=== PATIENT | male | born 2000 | race Caucasian/White ===

== ENCOUNTER 2020-06-10 02:19 | Emergency (ER) | payer OTHER, SELFPAY ==
[2020-06-10 02:20] VITALS: BP 138/81; PULSE 88; RESP 18; TEMP 37; O2SAT 98
--- NOTE | 2020-06-10 02:43 | ED.WOUNDLAC ---
HPI - Wound/Laceration General Chief Complaint: Wound/Laceration Stated Complaint: Laceration to finger Source: patient and RN notes reviewed Mode of arrival: ambulatory Limitations: no limitations History of Present Illness HPI narrative: Patient states he was walking and slipped on the ice. We went down his hand caught something under the snow and lacerated his middle and ring fingers on the distal phalanx palmar aspect. Onset (ago): minute(s) (30) Extremity Location: Right: hand (ring finger) Place: outdoors Patient tetanus UTD: Yes Context: accidental Associated symptoms: pain Treatments prior to arrival: bandage Related Data Allergies Allergy/AdvReac Type Severity Reaction Status Date / Time No Known Allergies Allergy Verified 06/10/20 02:29 Review of Systems Review of Systems: All systems reviewed & are unremarkable except as noted in HPI and below PMFSH Past Medical History Medical History (Updated 06/10/20 @ 03:43 by Selvin Hubbard MD) No active medical problems Surgical History Surgical History (Updated 06/10/20 @ 02:44 by Selvin Hubbard MD) H/O hand surgery Social History Social History (Updated 06/10/20 @ 02:45 by Selvin Hubbard MD) Tobacco type: e-cigarettes/vaping Substance use: current Substance use type: marijuana Other substance usage details: daily Exam Const: General: healthy appearing, no acute distress and alert Nutritional Appearance: well nourished Orientation/consciousness: patient oriented x3 HENMT: Head: normal to inspection Ears: external ears normal Eyes: Conjunctivae: conjunctivae normal Pupils: Equal, round and reactive pupils present EOM: EOMs intact bilaterally Neck: Neck: normal visual inspection Resp: Effort & Inspection: normal respiratory effort Auscultation: clear to auscultation bilaterally Cardio: Rate: regular rate Rhythm: regular rhythm GI: GI Palp: Yes Soft to palpation and No Tenderness to palpation present (GI) Auscultation: normal bowel sounds Back/Spine/Pelvis: Cervical Spine: cervical ROM normal Thoracic/Lumbar Spine: thoraco-lumbar ROM normal Skin: General skin exam: normal color Wounds: wounds noted laceration right palmar 3rd finger size (2 cm), margins well defined and open, flap right palmar 4th finger size (3 cm) and margins poorly approximated Neuro: General: patient oriented x3, moves all extremities, no meningeal signs and no focal motor deficits Speech: normal speech Gait exam (Neuro): Normal gait present Course Vital Signs Vital signs: Vital Signs Temperature 37.0 C 06/10/20 02:20 Pulse Rate 88 06/10/20 02:20 Respiratory Rate 18 06/10/20 02:20 Blood Pressure 138/81 06/10/20 02:20 Pulse Oximetry 98 06/10/20 02:20 Temperature 36.9 C 06/10/20 03:42 Pulse Rate 78 06/10/20 03:42 Respiratory Rate 20 06/10/20 03:42 Blood Pressure 125/74 06/10/20 03:42 Pulse Oximetry 100 06/10/20 03:42 Procedures Laceration Laceration 1: Date: 06/10/20 Time: 02:40 Site: hand (Middle finger) Side (If applicable): right Size (cm): 2.0 Description: linear and clean Depth: simple, single layer Local Anesthetic: lidocaine 1% Amount of anesthesia used (mL): 2 Pre-repair: wound explored and irrigated ====== Skin Level ====== Skin layer closed with: nylon Size (cm): 4-0 Number of sutures: 7 Technique: running ====== Subcutaneous Layer ====== ====== Muscle Layer ====== ====== Tendon Layer ====== Laceration 2: Date: 06/10/20 Time: 02:40 Site: hand (Ring Finger) Side (If applicable): right Size (cm): 3.0 Description: flap, irregular and contaminated Depth: simple, single layer (Involves subQ tissue) Local Anesthetic: lidocaine 1% (Digital nerve block) Amount of anesthesia used (mL): 5 Pre-repair: wound explored, irrigated a
[2020-06-10] MEDS: LIDOCAINE HCL 1% LOCAL INJ 20 ML VIAL (02:54)
[2020-06-10] MEDS: AMOXICILLIN/CLAVULANATE K 875-125 MG TAB 1 TABLET (03:40)
[2020-06-10 03:42] VITALS: BP 125/74; PULSE 78; RESP 20; TEMP 36.9; O2SAT 100
== END 2020-06-10 03:49 | disposition home or self-care (01) ==
PROVIDERS: Emergency Provider Emergency Medicine
DX: S61.214A Laceration without foreign body of right ring finger without damage to nail, initial encounter (principal); W00.0XXA Fall on same level due to ice and snow, initial encounter
CPT/HCPCS: 12002; 99283; A9270

== ENCOUNTER 2020-06-25 16:01 | Emergency (ER) | payer OTHER, SELFPAY ==
[2020-06-25 16:20] VITALS: BP 112/72; PULSE 68; RESP 18; TEMP 36.6; O2SAT 98
--- NOTE | 2020-06-25 16:31 | PC.NURSE ---
hand soaked in betadine, removing sutures
--- NOTE | 2020-06-25 16:33 | ED.GENADULT ---
HPI - General Adult General Chief complaint: Unspecified Stated complaint: stitches need taken out. Time Seen by Provider: 06/25/20 16:25 Source: patient and family Mode of arrival: ambulatory Limitations: no limitations History of Present Illness HPI narrative: Patient comes in with sutures in his right hand in the superior surface of finger 3 and 4. He requests suture removal. Sutures were placed several days ago. He was told to return for suture removal, but comes in now because he has not had sutures removed yet. Related Data Allergies Allergy/AdvReac Type Severity Reaction Status Date / Time No Known Allergies Allergy Verified 06/10/20 02:29 Review of Systems Constitutional: Constitutional: Reports no additional constitutional complaints Eyes: Eyes: Reports no additional eye complaints ENT: Reports system reviewed and no additional complaints, except as documented Cardiovascular: Cardiovascular: Reports no additional cardiovascular complaints Respiratory: Respiratory: Reports no additional respiratory complaints Gastrointestinal: Gastrointestinal: Reports no additional gastrointestinal complaints Genitourinary: Genitourinary: Reports no additional male genitourinary complaints Musculoskeletal: Musculoskeletal: Reports no additional musculoskeletal complaints Integumentary/Breasts: Skin/Breast: Reports system reviewed and no additional complaints, except as docu Comments: He comes in for sutures to both fingers to be removed. Neurologic: Reports system reviewed and no additional complaints, except as documented Psychiatric: Psychiatric: Reports no additional psychiatric complaints Endocrine: Endocrine: Reports no additional endocrine complaints Hematologic/Lymphatic: Hematologic/Lymphatic: Reports no additional hematologic/lymphatic complaints Allergic/Immunologic: Allergic/Immunologic: Reports no additional allergic/immunologic complaints PMFSH Past Medical History Medical History No active medical problems Surgical History Surgical History H/O hand surgery Family History Family History Mother No significant family history Social History Social History Tobacco type: e-cigarettes/vaping Substance use: current Substance use type: marijuana Other substance usage details: daily Gender identity (if verbalized by the patient): Male Exam Const: General: cooperative and healthy appearing Orientation/consciousness: oriented to person, oriented to place and oriented to time HENMT: Head: normal to inspection Ears: hearing grossly normal bilaterally General nose exam: Normal external nose present and Abnormal external nose present Mouth: Yes Normal oral and palatal mucosa present and Yes oropharynx normal Throat: posterior oropharynx normal Eyes: General: appearance normal, both eyes and all related structures Neck: Neck: normal visual inspection Chest: Chest palpation & inspection: normal inspection of the chest Resp: Effort & Inspection: normal respiratory effort and able to speak in complete sentences Auscultation: clear to auscultation bilaterally GI: Inspection: normal to inspection Skin: General skin exam: normal color Other: Lacerations to both fingers appear to be well healed. Sutures from both fingers were removed. He does have some superficial opening of the wound on the right ring finger. It appears he had some bleeding under the skin on that finger that inhibited healing at the most superficial level. Wound is not bleeding now, and only the most superficial, skin level appears to not be healed completely. Neuro: General: oriented to person, oriented to place and oriented to time Speech: normal speech Extrem: General: normal to inspection Psych: Appearance: g
[2020-06-25 16:38] VITALS: BP 113/72; PULSE 73; RESP 18; TEMP 36.8; O2SAT 98
== END 2020-06-25 16:38 | disposition home or self-care (01) ==
PROVIDERS: Emergency Provider Emergency Medicine
DX: Z48.02 Encounter for removal of sutures (principal)
CPT/HCPCS: 99281; 99282

== ENCOUNTER 2022-01-29 11:02 | Emergency (ER) | payer OTHER, SELFPAY ==
--- NOTE | ~2022-01-29 | CT_ITS ---
EXAMINATION: CT brain wo con DATE: 01/29/2022 11:32 INDICATION: Chronic frontal headaches TECHNIQUE: Computed tomography (CT) of the head was performed without intravenous contrast. Sagittal and coronal reconstructions were performed. The mA was adjusted according to patient size. Iterative reconstruction technique was employed. The dose-length product was 605.33 mGy-cm. COMPARISON: None FINDINGS: No acute intracranial hemorrhage, acute infarction or abnormal extra axial fluid collection. Ventricl es are normal and symmetric. No mass/mass effect. The orbits, paranasal sinuses and mastoid air cells are normal. IMPRESSION: 1. Normal head CT. Reviewed, dictated and finalized at location A. IMPRESSION: 1. Normal head CT.
[2022-01-29 11:08] VITALS: BP 111/93; PULSE 66; RESP 16; TEMP 36.4; O2SAT 99
--- NOTE | 2022-01-29 11:09 | ED.HA ---
HPI - Headache General Chief Complaint: Headache Stated Complaint: HEADACHE Time Seen by Provider: 01/29/22 11:09 Source: patient Mode of arrival: ambulatory History of Present Illness HPI Narrative: 21-year-old male, smoker with marijuana use presents to the ER with a 1 year history of -- bifrontal headaches. The headaches are short-lived lasting 5-10 minutes. He has headaches on a daily basis. The intensity of the headache is 3/10. No history of trauma. No photophobia or phonophobia. No focal neuro deficits. No double vision. No fever. MD elicited complaint: headache Onset (ago): year(s) ( He has had headaches for the past 1 year) Onset description: gradually Location: frontal and generalized Pain scale (0-10): 3 Exacerbating factors: none Relieving factors: nothing Context: occurred at rest Associated symptoms: none Treatments prior to arrival: none Related Data Home Medications Medication Instructions Recorded Confirmed No Home Medications 01/29/22 01/29/22 Allergies Allergy/AdvReac Type Severity Reaction Status Date / Time No Known Allergies Allergy Verified 06/10/20 02:29 Review of Systems Review of Systems: All systems reviewed & are unremarkable except as noted in HPI and below Constitutional: Constitutional: Reports as per HPI and Reports no additional constitutional complaints Eyes: Eyes: Reports as per HPI and Reports no additional eye complaints ENT: Reports system reviewed and no additional complaints, except as documented and Reports as per HPI Cardiovascular: Cardiovascular: Reports as per HPI and Reports no additional cardiovascular complaints Respiratory: Respiratory: Reports as per HPI and Reports no additional respiratory complaints Gastrointestinal: Gastrointestinal: Reports as per HPI and Reports no additional gastrointestinal complaints Genitourinary: Genitourinary: Reports no additional male genitourinary complaints and Reports as per HPI Musculoskeletal: Musculoskeletal: Reports no additional musculoskeletal complaints and Reports as per HPI Integumentary/Breasts: Skin/Breast: Reports system reviewed and no additional complaints, except as docu and Reports as per HPI Neurologic: Reports system reviewed and no additional complaints, except as documented and Reports as per HPI Psychiatric: Psychiatric: Reports no additional psychiatric complaints and Reports as per HPI Endocrine: Endocrine: Reports no additional endocrine complaints and Reports as per HPI Hematologic/Lymphatic: Hematologic/Lymphatic: Reports no additional hematologic/lymphatic complaints and Reports as per HPI Allergic/Immunologic: Allergic/Immunologic: Reports no additional allergic/immunologic complaints and Reports as per HPI PMFSH Past Medical History Medical History No active medical problems Surgical History Surgical History H/O hand surgery Family History Family History Mother No significant family history Social History Social History Tobacco type: e-cigarettes/vaping Substance use: current Substance use type: marijuana Other substance usage details: daily Gender identity (if verbalized by the patient): Male Exam Const: General: healthy appearing and no acute distress Nutritional Appearance: well nourished Orientation/consciousness: patient oriented x3 Limitations: no limitations HENMT: Head: normal to inspection Ears: external ears normal Face/Nose/Sinus: Normal external nose present Face and sinus: normal facial exam Mouth: Yes Normal oral and palatal mucosa present Throat: posterior oropharynx normal Eyes: Conjunctivae: conjunctivae normal Pupils: Equal, round and reactive pupils present EOM: EOMs intact bilaterally Direct Ophthalmoscopy: no
[2022-01-29 11:35] LABS: Appearance Urine Clear (Clear); Basophils Absolute Auto 0.02 K/mm3 (0.00-0.10); Basophils Percent Auto 0.3 % (0.0-1.0); Bilirubin Urine Negative (Negative); Blood Urine Negative (Negative); Eosinophils Absolute Auto 0.22 K/mm3 (0.02-0.50); Eosinophils Percent Auto 3.7 % (1.0-6.0); Glucose Urine UA Negative (Negative); Hematocrit 42.6 % (40.0-54.0); Hemoglobin 14.5 g/dL (14.0-18.0); Immature Granulocyte Absolute 0.02 K/mm3 (0.00-0.00); Immature Granulocyte Percent A 0.3 % (0.0-0.0); Ketones Urine Negative (Negative); Leukocyte Esterase Ur Negative (Negative); Lymphocytes Percent Auto 23.8 % (18.0-42.0); Mean Corpuscular Hemoglobin 30.3 pg (27.0-31.0); Mean Corpuscular Volume 89.1 fL (78.0-102.0); Mean Platelet Volume 11.2 fl (8.7-11.0); Monocytes Absolute Auto 0.37 K/mm3 (0.10-0.90); Monocytes Percent Auto 6.3 % (2.0-11.0); Neutrophils Absolute Auto 3.9 K/mm3 (1.7-7.2); Neutrophils Percent Auto 65.6 % (50.0-70.0); Nitrate Urine Negative (Negative); Platelet Count Result 157 K/mm3 (150-420); Protein Urine Negative (Negative); Red Blood Count 4.78 M/mm3 (4.70-6.10); Red Cell Distribution Width 11.5 % (11.6-14.4); Specific Grav Ur 1.015 (1.010-1.020); Urobilinogen Urine 0.2 mg/dL (0.2-1.0); White Blood Count 5.9 K/mm3 (4.8-10.8)
[2022-01-29 11:39] LABS: Add Urine Microscopic? NO; Color Urine Light Yellow (Yellow)
[2022-01-29 11:46] LABS: INR 1.1; Prothrombin Time 11.5 Seconds (9.50-12.10)
[2022-01-29 11:51] LABS: Anion Gap 7 mmol/L (8-16); Blood Urea Nitrogen 16 mg/dL (7-18); Calcium 8.8 mg/dL (8.5-10.1); Carbon Dioxide 27 mmol/L (21-32); Chloride 106 mmol/L (98-108); Estimated Glomerular Filt Rate > 60; Glucose 92 mg/dL (70-99); Magnesium 1.9 mg/dL (1.8-2.4); Osmolality Calculated 291 mOsm/kg (285-295); Potassium 4.1 mmol/L (3.5-5.1); Sodium 140 mmol/L (136-145)
[2022-01-29 11:52] LABS: Alanine Aminotransferase 30 U/L (16-63); Albumin Level 4.2 g/dL (3.4-5.0); Alkaline Phosphatase 54 U/L (46-116); Aspartate Amino Transferase 19 U/L (15-37); Bilirubin,Total 0.8 mg/dL (0.00-1.00); Total Protein 7.6 g/dL (6.4-8.2)
[2022-01-29 12:13] VITALS: BP 115/89; PULSE 85; RESP 20; TEMP 36.6; O2SAT 97
== END 2022-01-29 12:15 | disposition home or self-care (01) ==
PROVIDERS: Emergency Provider Internal Medicine Critical Care Medicine
DX: R51.9 Headache, unspecified (principal)
CPT/HCPCS: 36415; 70450; 80053; 81003; 83735; 85025; 85610; 99284

== ENCOUNTER 2022-05-26 21:11 | Emergency (ER) | payer OTHER, SELFPAY ==
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
[2022-05-26 21:20] VITALS: BP 120/74; PULSE 98; RESP 20; O2SAT 100
[2022-05-26 21:22] VITALS: BP 126/74; PULSE 70; TEMP 36.5; O2SAT 99
[2022-05-26] MEDS: KETOROLAC 30 MG/ML VIAL (*BKC) IM (21:59)
[2022-05-26 22:16] VITALS: BP 120/78; PULSE 87; RESP 18; TEMP 36.6; O2SAT 99
== END 2022-05-26 22:21 | disposition home or self-care (01) ==
PROVIDERS: Emergency Provider Internal Medicine Critical Care Medicine
DX: M54.50 Low back pain, unspecified (principal); M25.551 Pain in right hip; F17.290 Nicotine dependence, other tobacco product, uncomplicated; V47.0XXA Car driver injured in collision with fixed or stationary object in nontraffic accident, initial encounter
CPT/HCPCS: 72100; 73502; 96372; 99284; J1885

== ENCOUNTER 2023-03-15 14:25 | Emergency (ER) | payer OTHER, SELFPAY ==
[2023-03-15 14:25] VITALS: BP 119/80; PULSE 68; RESP 20; TEMP 37.6; O2SAT 98
--- NOTE | 2023-03-15 14:28 | ED.BACK ---
HPI - Back Pain/Injury General Chief Complaint: Back Pain/Injury Stated Complaint: back pain Time Seen by Provider: 03/15/23 14:27 Source: patient and RN notes reviewed Mode of arrival: ambulatory Limitations: no limitations History of Present Illness HPI Narrative: Patient states he was lifting some plywood and 2 by 4s helping a friend out and feeling back pain in his right side MD elicited complaint: back injury Onset (ago): day(s) (3) Timing: intermittent Severity: moderate Similar Symptoms Previously: Yes Quality: dull and aching Location: right lower back Radiation: none Exacerbating factors: movement Relieving factors: supine Context: while lifting Associated symptoms: denies other symptoms Work related injury: No Related Data Allergies Allergy/AdvReac Type Severity Reaction Status Date / Time No Known Allergies Allergy Verified 06/10/20 02:29 Review of Systems Review of Systems: All systems reviewed & are unremarkable except as noted in HPI and below PMFSH Past Medical History Medical History No active medical problems Surgical History Surgical History H/O hand surgery Family History Family History Mother No significant family history Social History Social History Tobacco type: e-cigarettes/vaping Substance use: current Substance use type: marijuana Other substance usage details: daily Gender identity (if verbalized by the patient): Male Exam Const: General: healthy appearing, no acute distress and alert Nutritional Appearance: well nourished and thin Orientation/consciousness: patient oriented x3 Limitations: no limitations HENMT: Head: normal to inspection Ears: external ears normal Face/Nose/Sinus: Normal external nose present Face and sinus: normal facial exam Mouth: Yes moist mucous membranes Eyes: Conjunctivae: conjunctivae normal Pupils: Equal, round and reactive pupils present EOM: EOMs intact bilaterally Neck: Neck: normal visual inspection Resp: Effort & Inspection: normal respiratory effort Auscultation: clear to auscultation bilaterally Cardio: Rate: regular rate Rhythm: regular rhythm GI: GI Palp: Yes Soft to palpation and No Tenderness to palpation present (GI) Auscultation: normal bowel sounds Back/Spine/Pelvis: Cervical Spine: cervical ROM normal Thoracic/Lumbar Spine: thoraco-lumbar ROM normal, straight leg raise negative bilaterally, pain with thoraco-lumbar ROM (mild), paraspinal muscle tenderness on the right in the lower lumbar and No lumbar spinal tenderness Skin: General skin exam: normal color Rashes: no rashes Neuro: General: patient oriented x3, moves all extremities, no focal motor deficits and CN's II-XI intact bilaterally Speech: normal speech Gait exam (Neuro): Normal gait present Extrem: General: normal to inspection and no clubbing, cyanosis or edema Psych: Mental Status: mental status grossly normal Affect: normal affect Attitude: cooperative Course Vital Signs Vital signs: Vital Signs Temperature 37.6 C 03/15/23 14:25 Pulse Rate 68 03/15/23 14:25 Respiratory Rate 20 03/15/23 14:25 Blood Pressure 119/80 03/15/23 14:25 Pulse Oximetry 98 03/15/23 14:25 Oxygen Delivery Room Air 03/15/23 14:25 Temperature 37.6 C 03/15/23 14:25 Pulse Rate 68 03/15/23 14:25 Respiratory Rate 20 03/15/23 14:25 Blood Pressure 119/80 03/15/23 14:25 Pulse Oximetry 98 03/15/23 14:25 Oxygen Delivery Room Air 03/15/23 14:25 MDM - Back Pain/Injury Differential Diagnosis Differential diagnosis: Likely strain of lumbar region Discharge Plan Discharge Clinical Impression: Strain of lumbar region Qualifiers: Encounter type: initial encounter Qualified Code(s): S39.012A - Strain of muscle,
== END 2023-03-15 14:53 | disposition home or self-care (01) ==
LOC: CHSED 14:50
PROVIDERS: Emergency Provider Emergency Medicine
DX: S39.012A Strain of muscle, fascia and tendon of lower back, initial encounter (principal); F17.290 Nicotine dependence, other tobacco product, uncomplicated; X50.0XXA Overexertion from strenuous movement or load, initial encounter
CPT/HCPCS: 99283

== ENCOUNTER 2023-08-12 12:56 | Emergency (ER) | payer OTHER, SELFPAY ==
[2023-08-12] VITALS (19 sets, daily range): BP systolic 109–146; BP diastolic 69–96; PULSE 55–81; RESP 15–26; TEMP 36.6; O2SAT 98–100
--- NOTE | ~2023-08-12 | CT_ITS ---
EXAMINATION: CTA chest PE protocol DATE: 08/12/2023 15:07 INDICATION: Left-sided chest pain worsening with deep inspiration TECHNIQUE: Computed tomography (CT) pulmonary angiogram of the chest was performed with 100 mL Omnipa que-350 intravenous contrast. Additional 3D reconstructions utilizing coronal maximum intensity proje ction (MIP) were performed. Automated exposure control and iterative reconstruction technique were em ployed. The dose-length product was 264.37 mGy-cm. COMPARISON: None FINDINGS: No pulmonary embolism. No pneumonia, pulmonary edema or other pulmonary infiltrates. No pleural effus ion or pneumothorax. Heart size is normal. Thoracic aorta is normal in caliber with no dissection. No pathologically enlarged thoracic lymphadenopathy. Mild thoracic spondylosis with chronic appearing m ild anterior wedging of a few mid thoracic vertebral bodies. IMPRESSION: 1. No pulmonary embolism or other acute cardiopulmonary disease. Reviewed, dictated and finalized at location A.
--- NOTE | ~2023-08-12 | XR_ITS ---
EXAMINATION: XR chest 1V portable Exam Date/Time: 08/12/2023 13:10 CDT HISTORY: Left pleuritic chest pain Comparison: None. RESULT: Lines, tubes, and devices: None. Lungs and pleura: Clear. No focal consolidation, pleural effusion, or pneumothorax. Minimal streaky left basilar opacities. Cardiomediastinal silhouette: Stable. Other: No acute osseous or upper abdominal finding. IMPRESSION: Minimal left basilar scar/atelectasis. No acute cardiopulmonary process. Reviewed, dictated and finalized at location K.
--- NOTE | 2023-08-12 13:10 | ECG_ITS ---
SEE SCANNED COPY FOR CONFIRMED REPORT MTDD
--- NOTE | 2023-08-12 13:11 | ED.CHESTPAIN ---
HPI - Chest Pain General Chief Complaint: Upper Respiratory Infection Stated Complaint: chest discomfort Time Seen by Provider: 08/12/23 13:03 Source: patient Mode of arrival: ambulatory Limitations: no limitations History of Present Illness HPI narrative: 22-year-old male who vapes presents to the ER with a 3 day history of -- left chest pain which is worse on coughing and deep breathing. No shortness of breath. The left chest feels tender on palpation complaint: chest pain Onset (ago): day(s) ( 3 days) Timing of current episode: episodic Prior episodes: No Onset: during rest Pain location: left chest Pain radiation: none Severity: moderate Quality: sharp Relieving factors: nothing Exacerbating factors: movement Treatment prior to arrival: none Risk Factors Coronary artery disease risk factors: smoking history Related Data Allergies Allergy/AdvReac Type Severity Reaction Status Date / Time No Known Allergies Allergy Verified 08/12/23 14:06 Review of Systems Review of Systems: All systems reviewed & are unremarkable except as noted in HPI and below Constitutional: Constitutional: Reports as per HPI and Reports no additional constitutional complaints Eyes: Eyes: Reports as per HPI and Reports no additional eye complaints ENT: Reports system reviewed and no additional complaints, except as documented and Reports as per HPI Cardiovascular: Cardiovascular: Reports as per HPI, Reports no additional cardiovascular complaints and Reports chest pain Respiratory: Respiratory: Reports as per HPI and Reports no additional respiratory complaints Gastrointestinal: Gastrointestinal: Reports as per HPI and Reports no additional gastrointestinal complaints Genitourinary: Genitourinary: Reports no additional male genitourinary complaints and Reports as per HPI Musculoskeletal: Musculoskeletal: Reports no additional musculoskeletal complaints and Reports as per HPI Integumentary/Breasts: Skin/Breast: Reports system reviewed and no additional complaints, except as docu and Reports as per HPI Neurologic: Reports system reviewed and no additional complaints, except as documented and Reports as per HPI Psychiatric: Psychiatric: Reports no additional psychiatric complaints and Reports as per HPI Endocrine: Endocrine: Reports no additional endocrine complaints and Reports as per HPI Hematologic/Lymphatic: Hematologic/Lymphatic: Reports no additional hematologic/lymphatic complaints and Reports as per HPI Allergic/Immunologic: Allergic/Immunologic: Reports no additional allergic/immunologic complaints and Reports as per HPI PMFSH Past Medical History Medical History No active medical problems Surgical History Surgical History H/O hand surgery Family History Family History Mother No significant family history Social History Social History Tobacco type: e-cigarettes/vaping Substance use: current Substance use type: marijuana Other substance usage details: daily Gender identity (if verbalized by the patient): Male Exam Const: General: healthy appearing and no acute distress Orientation/consciousness: patient oriented x3 Limitations: no limitations HENMT: Head: normal to inspection Ears: external ears normal Face/Nose/Sinus: Normal external nose present Face and sinus: normal facial exam Mouth: Yes Normal oral and palatal mucosa present Throat: posterior oropharynx normal Eyes: Conjunctivae: conjunctivae normal Pupils: Equal, round and reactive pupils present EOM: EOMs intact bilaterally Direct Ophthalmoscopy: no photophobia Neck: Neck: normal visual inspection, no lymphadenopathy and no meningeal signs Chest: Chest palpation & inspection: normal inspection of the chest Other
[2023-08-12 13:33] LABS: Basophils Absolute Auto 0.07 K/mm3 (0.00-0.10); Basophils Percent Auto 0.9 % (0.0-1.0); Eosinophils Absolute Auto 0.31 K/mm3 (0.02-0.50); Hematocrit 43.8 % (40.0-54.0); Hemoglobin 15.1 g/dL (14.0-18.0); Immature Granulocyte Absolute 0.03 K/mm3 (0.00-0.00); Immature Granulocyte Percent A 0.4 % (0.0-0.0); Lymphocytes Absolute Auto 1.44 K/mm3 (1.10-4.50); Lymphocytes Percent Auto 18.6 % (18.0-42.0); Mean Corpuscular HGB Conc 34.5 g/dL (32-36); Mean Corpuscular Hemoglobin 30.3 pg (27.0-31.0); Mean Platelet Volume 11.3 fl (8.7-11.0); Monocytes Absolute Auto 0.63 K/mm3 (0.10-0.90); Monocytes Percent Auto 8.1 % (2.0-11.0); Neutrophils Absolute Auto 5.28 K/mm3 (1.70-7.20); Platelet Count Result 182 K/mm3 (150-420); Red Blood Count 4.98 M/mm3 (4.70-6.10); Red Cell Distribution Width 11.8 % (11.6-14.4); White Blood Count 7.8 K/mm3 (4.8-10.8)
[2023-08-12 13:43] LABS: SARS-CoV-2 RNA PCR Negative (Negative)
[2023-08-12 13:46] LABS: Influenza A QL RT-PCR Negative (Negative); Influenza B QL RT-PCR Negative (Negative); RSV RNA, RT-PCR Negative (Negative)
[2023-08-12 13:48] LABS: D Dimer 0.69 mg/L (0.19-0.50)
[2023-08-12 13:52] LABS: Alanine Aminotransferase 18 U/L (16-63); Albumin Level 4.4 g/dL (3.4-5.0); Alkaline Phosphatase 50 U/L (46-116); Anion Gap 8 mmol/L (4-12); Aspartate Amino Transferase 30 U/L (15-37); Blood Urea Nitrogen 17 mg/dL (7-18); Carbon Dioxide 30 mmol/L (21-32); Chloride 104 mmol/L (98-108); Estimated CRCL calculation 101 ml/min; Estimated Glomerular Filt Rate > 60; Glucose 89 mg/dL (70-99); Osmolality Calculated 294 mOsm/kg (285-295); Potassium 3.7 mmol/L (3.5-5.1); Sodium 142 mmol/L (136-145); Total Protein 8.2 g/dL (6.4-8.2); Troponin I 38.5 ng/L (0.00-60.4)
[2023-08-12] MEDS: LACTATED RINGERS 1,000 ML 999 ML IV CONT (14:31)
--- NOTE | 2023-08-12 16:06 | PC.NURSE ---
Pt had approx 700ml of NS in and decided he did not want to wait until all fluids were finished before d/c
== END 2023-08-12 16:07 | disposition home or self-care (01) ==
PROVIDERS: Emergency Provider Internal Medicine Critical Care Medicine
DX: R09.1 Pleurisy (principal); Z20.822 Contact with and (suspected) exposure to COVID-19
CPT/HCPCS: 36415; 71045; 71275; 80053; 84484; 85025; 85380; 87637; 93005; 96360; 96361; 99284; J7120; Q9967

== ENCOUNTER 2023-09-01 13:33 | Emergency (ER) | payer OTHER, SELFPAY ==
--- NOTE | ~2023-09-01 | XR_ITS ---
EXAMINATION: XR forearm RT 2V DATE: 09/01/2023 14:22 INDICATION: Right forearm foreign body. TECHNIQUE: 2 views of right forearm were obtained. COMPARISON: None. FINDINGS: Bone alignment is normal. No fracture. Joint spaces are normal. No elbow joint effusion. IMPRESSION: 1. No radiopaque foreign body. Reviewed, dictated and finalized at location A.
[2023-09-01 13:33] VITALS: BP 121/80; PULSE 65; RESP 18; TEMP 36.6; O2SAT 100
--- NOTE | 2023-09-01 13:34 | ED.SKABFB ---
HPI - Skin/Abscess/Foreign Bdy General Chief complaint: Skin/Abscess/Foreign Body Stated complaint: RT FOREARM WOUND Time Seen by Provider: 09/01/23 13:34 Source: patient Mode of arrival: ambulatory Limitations: no limitations History of Present Illness HPI narrative: Patient is a 22-year-old male with a right forearm puncture wound from a piece of metal yesterday. He was working in the [email or web address] and sustained this injury. He is not up-to-date on tetanus. He is having some localized swelling and tenderness. MD complaint: other ( Puncture wound right forearm) Onset (ago): day(s) (1) Tetanus up to date: no Location: RUE ( forearm) Severity: moderate Severity scale (1-10): 4 Quality: burning and sharp Pain Consistency: constant Relieving factors: none Exacerbating factors: palpation Context: other ( puncture wound right forearm from metal object) Associated symptoms: denies other symptoms Treatments prior to arrival: none Related Data Allergies Allergy/AdvReac Type Severity Reaction Status Date / Time No Known Allergies Allergy Verified 09/01/23 14:03 Review of Systems Review of Systems: All systems reviewed & are unremarkable except as noted in HPI and below Constitutional: Constitutional: Reports no additional constitutional complaints Eyes: Eyes: Reports no additional eye complaints ENT: Reports system reviewed and no additional complaints, except as documented Cardiovascular: Cardiovascular: Reports no additional cardiovascular complaints Respiratory: Respiratory: Reports no additional respiratory complaints Gastrointestinal: Gastrointestinal: Reports no additional gastrointestinal complaints Genitourinary: Genitourinary: Reports no additional male genitourinary complaints Musculoskeletal: Musculoskeletal: Reports no additional musculoskeletal complaints Integumentary/Breasts: Skin/Breast: Reports system reviewed and no additional complaints, except as docu Neurologic: Reports system reviewed and no additional complaints, except as documented Psychiatric: Psychiatric: Reports no additional psychiatric complaints Endocrine: Endocrine: Reports no additional endocrine complaints Hematologic/Lymphatic: Hematologic/Lymphatic: Reports no additional hematologic/lymphatic complaints Allergic/Immunologic: Allergic/Immunologic: Reports no additional allergic/immunologic complaints PMFSH Past Medical History Medical History No active medical problems Surgical History Surgical History H/O hand surgery Family History Family History Mother No significant family history Social History Social History Tobacco type: e-cigarettes/vaping Substance use: current Substance use type: marijuana Other substance usage details: daily Gender identity (if verbalized by the patient): Male Exam Const: General: healthy appearing Nutritional Appearance: well nourished Orientation/consciousness: patient oriented x3 HENMT: Head: normal to inspection Ears: external ears normal Face/Nose/Sinus: Normal external nose present Eyes: Conjunctivae: conjunctivae normal Pupils: Equal, round and reactive pupils present EOM: EOMs intact bilaterally Neck: Neck: normal visual inspection Chest: Chest palpation & inspection: normal inspection of the chest Resp: Effort & Inspection: normal respiratory effort and not labored Auscultation: clear to auscultation bilaterally Cardio: Rate: regular rate Rhythm: regular rhythm Heart sounds: no murmurs GI: Inspection: non-distended GI Palp: Yes Soft to palpation and No Tenderness to palpation present (GI) Auscultation: normal bowel sounds : General: Yes bladder normal to palpation Back/Spine/Pelvis: Back: no CVA tenderness Skin: General skin exam: nor
[2023-09-01] MEDS: TETANUS,DIPHTHERIA,AC PERTUSSIS ADULT 0.5 ML (ADACEL) IM (14:18)
[2023-09-01 14:50] VITALS: BP 118/78; PULSE 62; RESP 16; TEMP 36.7; O2SAT 98
--- NOTE | 2023-09-01 15:04 | PC.NURSE ---
PMD LIST PROVIDED
== END 2023-09-01 14:50 | disposition home or self-care (01) ==
PROVIDERS: Emergency Provider Emergency Medicine
DX: S51.831A Puncture wound without foreign body of right forearm, initial encounter (principal); W26.8XXA Contact with other sharp object(s), not elsewhere classified, initial encounter; F17.290 Nicotine dependence, other tobacco product, uncomplicated; Z23 Encounter for immunization
CPT/HCPCS: 73090; 90471; 90715; 99283

== ENCOUNTER 2023-11-29 21:49 | Emergency (ER) | payer OTHER, SELFPAY ==
--- NOTE | ~2023-11-29 | XR_ITS ---
XR shoulder LT min 2V DATE: 11/29/2023 22:02 INDICATION: Fall 2 days ago. Superior left shoulder pain. TECHNIQUE: 4 views COMPARISON: None FINDINGS: No fracture or dislocation, periosteal reaction or bone destruction or abnormal soft tissue calcification. IMPRESSION: Negative Reviewed, dictated and finalized at location J. IMPRESSION: Negative
[2023-11-29 21:51] VITALS: BP 123/79; PULSE 64; RESP 16; TEMP 36.6; O2SAT 97
--- NOTE | 2023-11-29 21:53 | ED.UPPEXIN ---
HPI - Extremity Injury (Upper) General Chief Complaint: Fall Stated Complaint: left shoulder injury Time Seen by Provider: 11/29/23 21:51 Source: patient Mode of arrival: ambulatory Limitations: no limitations History of Present Illness HPI narrative: patient is a 23-year-old male with a left shoulder injury after falling off of a step ladder and landing onto the left shoulder. This occurred 2 days ago. Continued pain daily. complaint: injury to: left and shoulder Onset (ago): day(s) (2) Other Extremity Injury: Left: shoulder Other injuries: none Place: outdoors Severity: moderate Severity scale (1-10): 4 Relieving factors: immobilization Exacerbating factors: movement of extremity Context: fall and direct blow Associated symptoms: denies other symptoms Related Data Allergies Allergy/AdvReac Type Severity Reaction Status Date / Time No Known Allergies Allergy Verified 09/01/23 14:03 Review of Systems Review of Systems: All systems reviewed & are unremarkable except as noted in HPI and below Constitutional: Constitutional: Reports no additional constitutional complaints Eyes: Eyes: Reports no additional eye complaints ENT: Reports system reviewed and no additional complaints, except as documented Cardiovascular: Cardiovascular: Reports no additional cardiovascular complaints Respiratory: Respiratory: Reports no additional respiratory complaints Gastrointestinal: Gastrointestinal: Reports no additional gastrointestinal complaints Genitourinary: Genitourinary: Reports no additional male genitourinary complaints Musculoskeletal: Musculoskeletal: Reports no additional musculoskeletal complaints Integumentary/Breasts: Skin/Breast: Reports system reviewed and no additional complaints, except as docu Neurologic: Reports system reviewed and no additional complaints, except as documented Psychiatric: Psychiatric: Reports no additional psychiatric complaints Endocrine: Endocrine: Reports no additional endocrine complaints Hematologic/Lymphatic: Hematologic/Lymphatic: Reports no additional hematologic/lymphatic complaints Allergic/Immunologic: Allergic/Immunologic: Reports no additional allergic/immunologic complaints PMFSH Past Medical History Medical History No active medical problems Surgical History Surgical History H/O hand surgery Family History Family History Mother No significant family history Social History Social History Tobacco type: e-cigarettes/vaping Substance use: current Substance use type: marijuana Other substance usage details: daily Gender identity (if verbalized by the patient): Male Exam Const: General: healthy appearing Nutritional Appearance: well nourished Orientation/consciousness: patient oriented x3 HENMT: Head: normal to inspection Ears: external ears normal Face/Nose/Sinus: Normal external nose present Eyes: Conjunctivae: conjunctivae normal Pupils: Equal, round and reactive pupils present EOM: EOMs intact bilaterally Neck: Neck: normal visual inspection Chest: Chest palpation & inspection: normal inspection of the chest Resp: Effort & Inspection: normal respiratory effort and not labored Auscultation: clear to auscultation bilaterally Cardio: Rate: regular rate Rhythm: regular rhythm Heart sounds: no murmurs GI: Inspection: non-distended GI Palp: Yes Soft to palpation and No Tenderness to palpation present (GI) Auscultation: normal bowel sounds : General: Yes bladder normal to palpation Back/Spine/Pelvis: Back: no CVA tenderness Skin: General skin exam: normal color Rashes: no rashes Wounds: no wounds Neuro: General: patient oriented x3 Cranial nerves: Yes Nystagmus not present Speech: normal speech Extrem:
== END 2023-11-29 22:20 | disposition home or self-care (01) ==
PROVIDERS: Emergency Provider Emergency Medicine
DX: S40.012A Contusion of left shoulder, initial encounter (principal); F17.290 Nicotine dependence, other tobacco product, uncomplicated; W11.XXXA Fall on and from ladder, initial encounter
CPT/HCPCS: 73030; 99283; A4565

== ENCOUNTER 2024-07-07 09:27 | Emergency (ER) | payer OTHER, SELFPAY ==
[2024-07-07 09:31] VITALS: BP 113/78; PULSE 71; RESP 18; TEMP 36.5; O2SAT 97
--- NOTE | 2024-07-07 09:32 | PC.NURSE ---
covid swab sent to lab
--- NOTE | 2024-07-07 09:40 | ED_ITS ---
HPI - URI/Sore Throat General Chief Complaint: Upper Respiratory Infection Stated Complaint: nausea Time Seen by Provider: 07/07/24 09:28 Source: patient Mode of arrival: ambulatory Limitations: no limitations History of Present Illness HPI Narrative: this is a 23-year-old male who presents with 1 day history of cough congestion runny nose with sore throat with no fever chills no nausea vomiting no shortness of breath. MD elicited complaint: cough, sore throat, rhinorrhea and nasal congestion Onset (ago): day(s) Consistency: constant Severity: mild Description of mucous: clear Able to tolerate fluids by mouth: Yes Related Data Allergies Allergy/AdvReac Type Severity Reaction Status Date / Time No Known Allergies Allergy Verified 07/07/24 09:41 Review of Systems Review of Systems: All systems reviewed & are unremarkable except as noted in HPI and below PMFSH Past Medical History Medical History No active medical problems Surgical History Surgical History H/O hand surgery Family History Family History Mother No significant family history Social History Social History Tobacco type: e-cigarettes/vaping Substance use: current Substance use type: marijuana Other substance usage details: daily Gender identity (if verbalized by the patient): Male Exam Const: General: healthy appearing and no acute distress Nutritional Appearance: well nourished Orientation/consciousness: patient oriented x3 Limitations: no limitations HENMT: Head: normal to inspection Face and sinus: sinus tenderness Other: Nasal congestion with drainage Neck: Neck: normal visual inspection, no lymphadenopathy and no meningeal signs Resp: Effort & Inspection: normal respiratory effort Auscultation: clear to auscultation bilaterally Cardio: Rate: regular rate Rhythm: regular rhythm GI: GI Palp: Yes Soft to palpation Auscultation: normal bowel sounds Course Course Emergency Course: patient had a COVID RSV influenza and strep performed and reviewed with patient. Vital Signs Vital signs: Vital Signs Temperature 36.5 C 07/07/24 09:31 Pulse Rate 71 07/07/24 09:31 Respiratory Rate 18 07/07/24 09:31 Blood Pressure 113/78 07/07/24 09:31 Pulse Oximetry 97 07/07/24 09:31 Oxygen Delivery Room Air 07/07/24 09:31 Temperature 36.9 C 07/07/24 10:35 Pulse Rate 100 07/07/24 10:35 Respiratory Rate 20 07/07/24 10:35 Blood Pressure 112/71 07/07/24 10:35 Pulse Oximetry 97 07/07/24 10:35 Oxygen Delivery Room Air 07/07/24 10:35 MDM - URI/Sore Throat Lab Data Labs: Lab Results 07/07/24 07/07/24 Range/Units 09:28 09:34 Influenza A (RT-PCR) Negative (Negative) Influenza B (RT-PCR) Negative (Negative) RSV (RT-PCR) Negative (Negative) SARS-CoV-2 RNA (RT-PCR) Negative (Negative) Group A Strep (PCR) Not detected (Negative) Critical Care Time Critical Care Time Critical Care Time: No Discharge Plan Discharge Clinical Impression: Sinusitis Qualifiers: Sinusitis location: unspecified location Chronicity: acute Recurrence: non- recurrent Qualified Code(s): J01.90 - Acute sinusitis, unspecified Patient Disposition: Home, Self-Care Condition: Stable Instructions: Antibiotic Form, Sinusitis (ED) Additional Instructions: advised to take medication as prescribed and follow with primary care physician if symptoms persist or worsen. Patient Language: Chinese Prescriptions: New azithromycin [Zithromax Z-Torres] 250 mg tablet See Rx Instructions .ROUTE .COMPLEX Qty: 6 0RF Rx Instructions: For 250 mg dose pack: take 500 mg today (day 1), then 250 mg for 4 days (days 2-5) Follow-up/Referrals: UNKNOWN,DOCTOR [Primary Care Provider] - Time of Disposition: 10:27
[2024-07-07 10:10] LABS: Influenza A QL RT-PCR Negative (Negative); Influenza B QL RT-PCR Negative (Negative); RSV RNA, RT-PCR Negative (Negative); SARS-CoV-2 RNA PCR Negative (Negative)
[2024-07-07 10:19] LABS: Strep Group A RT-PCR NOT DETECTED (Negative)
[2024-07-07 10:35] VITALS: BP 112/71; PULSE 100; RESP 20; TEMP 36.9; O2SAT 97
--- OUTSIDE RECORDS SUMMARY | 2024-07-07 10:35 | XMS_ITS | Clinical Summary ---
Author Organization [facility] Address [facility] [place] [address] Care Team Providers Care Communications Specialist Name Role Phone None, Provider MD Primary Care Provider Unavaila ble Allergies No known active allergies Medications No known medications Social History Tobacco Use Types Packs/Day Years Used Date Smoking Tobacco: Never Smokeless Tobacco: Never Alcohol Use Standard Drinks/Week Comments Not Currently 0 (1 standard drink = 0.6 oz pur e alcohol) Sex and Gender Information Value Date Recorded Sex Assigned at Not on file Legal Sex Male 5:46 PM CDT Gender Identity Not on file Sexual Orientation Not on file Last Filed Vital Signs Vital Sign Reading Time Taken Comments Blood Pressure 121/70 02/06/2020 6:10 PM CDT Pulse 69 02/06/2020 6:10 PM CDT Temperature 36.8 C (98.3 F) 02/06/2020 6:10 PM CDT Respiratory Rate 18 02/06/2020 6:10 PM CDT Oxygen Saturation 99% 02/06/2020 6:10 PM CDT Inhaled Oxygen Concentration - - Weight 67.1 kg (148 lb) 02/06/2020 6:10 PM CDT Height 188 cm (6' 2 ) 02/06/2020 6:10 PM CDT Body Mass Index 19 02/06/2020 6:10 PM CDT Plan of Treatment Health Maintenance Due Date Last Done Comments Annual Physical 10/30/2002 HPV Vaccines (1 - Male 3-dos e series) 10/30/2014 Hepatitis C 10/30/2017 DTaP, Tdap and Td Vaccines ( 1 - Tdap) 10/30/2018 Hepatitis B Vaccines (1 of 3 - 19+ 3-dose series) 10/30/2018 COVID-19 Vaccine (2023-2 5 season) 2023 Influenza Adult (#1) 2024 Meningococcal B Vaccine Aged Out No l onger eligible based on patient's age to complete this topic Meningococcal Vaccine Aged Out No tanner calvin eligible based on patient's age to complete this topic Pneumococcal Vaccine: Pediat rics (0 to 5 Years) and At-Risk Patients (6 to 64 Years) Aged Out No longer eligible b ased on patient's age to complete this topic RSV Immunizations Under 20 Months Aged Out No longer eligible based on patient's age to complete [place] [address] Care Teams Communications Specialist Relationship Specialty Start Date End Date None, Provider, PCP - General 02/06/20
--- OUTSIDE RECORDS SUMMARY | 2024-07-07 11:27 | XMS_ITS | Clinical Summary ---
Author Organization [facility] Address Counts include [address] beds at the [facility] [place] [address] Care Team Providers Care Power Transformer Repair Supervisor Name Role Phone None, Provider MD Primary [...] patient's age to complete this topic Insurance Care Teams Power Transformer Repair Supervisor Relationship Specialty Start Date End Date None, Provider, PCP - General 02/06/20
== END 2024-07-07 10:37 | disposition home or self-care (01) ==
PROVIDERS: Emergency Provider Emergency Medicine
DX: J01.90 Acute sinusitis, unspecified (principal); F17.290 Nicotine dependence, other tobacco product, uncomplicated; Z20.822 Contact with and (suspected) exposure to COVID-19
CPT/HCPCS: 87637; 87651; 99283

== ENCOUNTER 2025-04-10 18:09 | Emergency (ER) | payer OTHER, SELFPAY ==
--- OUTSIDE RECORDS SUMMARY | 2025-04-10 16:09 | XMS_ITS | Encounter Summary ---
Author Organization [facility] Address [address] [place] [address] Phone Care Team Providers Care Religious Assistant Name Role Phone Teto Draper MD Primary Care Provider Reason for Visit * Reason Comments Sore Throat Ear Pain Encounter Details Date Type Department Care Team (Late st Contact Info) Description 04/10/2025 4:09 PM SAWDUST MACHINE OPERATOR - 04/10/2025 4:33 PM SAWDUST MACHINE OPERATOR Emergency [facility] Emergency [address] [place] [phone] Deborah Cadena, BRIDGE OPERATOR SLIP, SHAREPOINT ADMINISTRATOR [address] [place] [address] Patient left without being seen Discharge Disposition: LWBS Social History Tobacco Use Types Packs/Day Years Used Date Smoking Tobacco: Never Smokeless Tobacco: Never Alcohol Use Standard Drinks/Week Comments No 0 (1 standard drink = 0.6 oz pur e alcohol) Sex and Gender Information Value Date Recorded Sex Assigned at Not on file Legal Sex Male 7:49 PM CDT Gender Identity Not on file Sexual Orientation Not on file documented as of this encounter Last Filed Vital Signs Vital Sign Reading Time Taken Comments Blood Pressure 127/75 04/10/2025 2:08 PM SAWDUST MACHINE OPERATOR Pulse 80 04/10/2025 2:08 PM SAWDUST MACHINE OPERATOR Temperature 37.6 C (99.6 F) 04/10/2025 2:08 PM SAWDUST MACHINE OPERATOR Respiratory Rate 14 04/10/2025 2:08 PM SAWDUST MACHINE OPERATOR Oxygen Saturation 98% 04/10/2025 2:08 PM SAWDUST MACHINE OPERATOR Inhaled Oxygen Concentration - - Weight 63.5 kg (140 lb) 04/10/2025 2:08 PM SAWDUST MACHINE OPERATOR Height 185.4 cm (6' 1) 04/10/2025 2:08 PM SAWDUST MACHINE OPERATOR Body Mass Index 18.47 04/10/2025 2:08 PM SAWDUST MACHINE OPERATOR documented in this encounter Functional Status * Question Answer Date of Assessment Author Pain Description constant 04/10/2025 2:09 PM SAWDUST MACHINE OPERATOR W Patsy painting RN * Mccarthy Fall Risk Question Answer Date of Assessment Author History of Falling, Immediat e or Within 3 Months 0 04/10/2025 2:09 PM SAWDUST MACHINE OPERATOR Patsy Bynum RN Secondary Diagnosis 0 04/10/2025 2:09 PM CS T Patsy Bynum RN Ambulatory Aid 0 04/10/2025 2:09 PM SAWDUST MACHINE OPERATOR Patsy Castro RN Intravenous Therapy/Heparin Lock 0 04/10/20 2:09 PM SAWDUST MACHINE OPERATOR Patsy Bynum RN Gait/Transferring 0 04/10/2025 2:09 PM SAWDUST MACHINE OPERATOR Patsy Bynum RN Mental Status 0 04/10/2025 2:09 PM SAWDUST MACHINE OPERATOR Patsy Mcekon RN Morse Fall Risk Score 0 04/10/2025 2:09 PM SAWDUST MACHINE OPERATOR Patsy Bynum RN * Question Answer Date of Assessment Author SpO2 98 04/10/2025 2:08 PM SAWDUST MACHINE OPERATOR Luz Maria Rod Intern O2 Device None (Room air) 04/10/2025 2:08 PM SAWDUST MACHINE OPERATOR Luz Maria Hurtado Intern * Safety Factors Answer Date of Assessment Author bed in low position;call light in reach 04/10/20 2:09 PM SAWDUST MACHINE OPERATOR Patsy Bynum RN * Question Answer Date of Assessment Author BP 127/75 04/10/2025 2:08 PM SAWDUST MACHINE OPERATOR Luz Maria Rod Intern Temp 99.6 04/10/2025 2:08 PM SAWDUST MACHINE OPERATOR Luz Maria Rod Intern Pulse 80 04/10/2025 2:08 PM SAWDUST MACHINE OPERATOR Luz Maria Rod Intern Resp 14 04/10/2025 2:08 PM SAWDUST MACHINE OPERATOR Luz Maria Rod Intern documented as of this encounter Mental Status * Question Answer Entry Date Author Pain Description constant 04/10/2025 2:09 PM SAWDUST MACHINE OPERATOR W Patsy painting RN * Question Answer Entry Date Author SpO2 98 04/10/2025 2:08 PM SAWDUST MACHINE OPERATOR Luz Maria Rod Intern O2 Device None (Room air) 04/10/2025 2:08 PM SAWDUST MACHINE OPERATOR Luz Maria Hurtado Intern * Safety Factors Answer Entry Date Author bed in low position;call light in reach 04/10/20 2:09 PM SAWDUST MACHINE OPERATOR Patsy Bynum, NAVI * Question Answer Entry Date Author BP 127/75 04/10/2025 2:08 PM SAWDUST MACHINE OPERATOR Luz Maria Rod Intern Temp 99.6 04/10/2025 2:08 PM SAWDUST MACHINE OPERATOR Luz Maria Rod Intern Pulse 80 04/10/2025 2:08 PM SAWDUST MACHINE OPERATOR Luz Maria Rod Intern documented in this encounter Medications at Time of Discharge ondansetron (ZOFRAN) 4 MG Tablet Take 1 Tab by mouth every 8 hours as needed for Nausea - 1st line. 10 Tab 05/12/2018 documented as of this encounter ED Notes * Ami Allen RN - 04/10/2025 4:31 PM CST Pt attempted to be called back again without success. UST MACHINE OPERATOR * Ami Allen RN - 04/10/2025 4:18 PM CST RN attempted to call back pt again without success. UST MACHINE OPERATOR * Ami Allen RN - 04/10/2025 4:10 PM CST RN attempted to call back pt from the waiting room without success. RN will attempt again soon. UST MACHINE OPERATOR * Patsy Bynum RN - 04/10/2025 2:10 PM CST PT arrives to triage complaining of a sore throat and left ear pain. Pt was seen at [facility] and tested negative for only strep. UST MACHINE OPERATOR documented in this encounter Plan of Treatment Not on file documented as of this encounter Procedures Procedure Name Priority Date/Time Associated Diagnosis Comments GROUP A STREP BY PCR STAT 04/10/2025 2:12 PM SAWDUST MACHINE OPERATOR RSV,SARS-COV-2,INFL UENZA A&B BY PCR STAT 04/10/2025 2:12 PM SAWDUST MACHINE OPERATOR documented in this encounter Results * RSV,SARS-COV-2,INFLUENZA A&B BY PCR (04/10/2025 2:12 PM SAWDUST MACHINE OPERATOR) FLU A Negative Negative, Error 04/10/2025 3:08 PM SAWDUST MACHINE OPERATOR [facility] FLU B Negative Negative 04/10/2025 3:08 PM SAWDUST MACHINE OPERATOR [facility] RESP SYNC VIRUS Negative Negative 3:08 PM SAWDUST MACHINE OPERATOR [facility] SARSCOV2 NOT DETECTED (Reference Range for this test is Not Detected) 04/10/2025 3:08 PM SAWDUST MACHINE OPERATOR [facility] Comment:This test was perfor med by a Reverse Engineering Administrator PCR Method. Nasal NASOPHARYNGEAL STRUCTURE / Unknown Non-Phlebotomy Collection / Unknown 04/10/2025 2:12 PM SAWDUST MACHINE OPERATOR 04/10/2025 2:17 PM SAWDUST MACHINE OPERATOR us Deborah Cadena APRN, SHAREPOINT ADMINISTRATOR MICROBIOLOGY - GENERA L ORDERABLES Final Result [facility] [address] [place] [address] * GROUP A STREP BY PCR (04/10/2025 2:12 PM SAWDUST MACHINE OPERATOR) GROUP A STREP BY PCR NOT DETECTED NOT DETECTED 04/10/2025 2:57 PM SAWDUST MACHINE OPERATOR [facility] Swab STRUCTURE OF ANTERIOR REGION OF NECK / Unknown Non-Phlebotomy Collection / Unknown 04/10/2025 2:12 PM SAWDUST MACHINE OPERATOR 04/10/2025 2:17 PM SAWDUST MACHINE OPERATOR us Deborah Cadena BRIDGE OPERATOR SLIP, SHAREPOINT ADMINISTRATOR MICROBIOLOGY - GENERA L ORDERABLES Final Result [facility] [address] [place] [address] documented in this encounter Visit Diagnoses Diagnosis Patient left without being seen- Primary Surgical or other procedure not carried out because of patient's decision documented in this encounter Care Teams Religious Assistant Relationship Specialty Start Date End Date Teto Draper MD [address] [place] [address] PCP - General Pediatrics 03/27/16 documented as of this encounter
[2025-04-10 18:09] VITALS: BP 114/86; PULSE 80; RESP 18; TEMP 36.7; O2SAT 98
--- OUTSIDE RECORDS SUMMARY | 2025-04-10 18:36 | XMS_ITS | Clinical Summary ---
Author Organization [facility] Address [facility] [place] [address] Care Team Providers Care Torque Tester Name Role Phone None, Provider MD Primary [...] 6:10 PM CDT Height 188 cm (6' 2) 02/06/2020 6:10 PM CDT Body Mass Index 19 02/06/2020 6:10 PM CDT Plan of Treatment Health Maintenance Due Date Last Done Comments Annual Physical 10/30/2002 HPV Vaccines (1 - Male 3-dos e series) 10/30/2014 Hepatitis C 10/30/2017 DTaP, Tdap and Td Vaccines ( 1 - Tdap) 10/30/2018 Hepatitis B Vaccines (1 of 3 - 19+ 3-dose series) 10/30/2018 COVID-19 Vaccine (2024-2 6 season) 2024 Influenza Adult (#1) 2025 Hepatitis A Vaccines Aged Out No long er eligible based on patient's age to complete this topic Meningococcal B Vaccine Aged Out No l onger eligible based on patient's age to complete this topic Meningococcal Vaccine Aged Out No tanner calvin eligible based on patient's age to complete this topic Pneumococcal Vaccine: Pediat rics (0 to 5 Years) and At-Risk Patients (6 to 49 Years) Aged Out No longer eligible b ased on patient's age to complete this topic RSV Immunizations Under 20 Months Aged Out No longer eligible based on patient's age to complete this topic Insurance [id number] Care Teams Torque Tester Relationship Specialty Start Date End Date None, Provider, PCP - General 02/06/20
--- OUTSIDE RECORDS SUMMARY | 2025-04-10 18:37 | XMS_ITS | Clinical Summary ---
Author Organization [facility] Address [address] [place] [address] Phone Care Team Providers Care Instructor Decorating Name Role Phone Teto Draper MD Primary Care Provider Allergies No known active allergies Medications ondansetron (ZOFRAN) 4 MG Tablet Take 1 Tab by mouth every 8 hours as needed for Nausea - 1st line. 10 Tab 05/12/2018 Active Encounters Date Type Department Care Team Description 04/10/2025 4:09 PM OUTDOOR ADVENTURE LEADER - 04/10/2025 4:33 PM OUTDOOR ADVENTURE LEADER Emergency [facility] Emergency [address] [place] [address] Deborah Cadena, DROP HAMMER SETTER UP, SUPERVISOR CASE LOADING Patient left without being seen Discharge Disposition: LWBS 04/10/2025 Travel from Last 3 Months Social History Tobacco Use Types Packs/Day Years [...] Comments Blood Pressure 127/75 04/10/2025 2:08 PM OUTDOOR ADVENTURE LEADER Pulse 80 04/10/2025 2:08 PM OUTDOOR ADVENTURE LEADER Temperature 37.6 C (99.6 F) 04/10/2025 2:08 PM OUTDOOR ADVENTURE LEADER Respiratory Rate 14 04/10/2025 2:08 PM OUTDOOR ADVENTURE LEADER Oxygen Saturation 98% 04/10/2025 2:08 PM OUTDOOR ADVENTURE LEADER Inhaled Oxygen Concentration - - Weight 63.5 kg (140 lb) 04/10/2025 2:08 PM OUTDOOR ADVENTURE LEADER Height 185.4 cm (6' 1) 04/10/2025 2:08 PM OUTDOOR ADVENTURE LEADER Body Mass Index 18.47 04/10/2025 2:08 PM OUTDOOR ADVENTURE LEADER Plan of Treatment Not on file Procedures Procedure Name Priority Date/Time Associated Diagnosis Comments RSV,SARS-COV-2,INFL UENZA A&B BY PCR STAT 04/10/2025 2:12 PM OUTDOOR ADVENTURE LEADER GROUP A STREP BY PCR STAT 04/10/2025 2:12 PM OUTDOOR ADVENTURE LEADER from Last 3 Months Results * GROUP A STREP BY PCR (04/10/2025 2:12 PM OUTDOOR ADVENTURE LEADER) Pathologist [facility] GROUP A STREP BY PCR NOT DETECTED NOT DETECTED 04/10/2025 2:57 PM OUTDOOR ADVENTURE LEADER [email or web address] Swab STRUCTURE OF ANTERIOR REGION OF NECK / Unknown Non-Phlebotomy Collection / Unknown 04/10/2025 2:12 PM OUTDOOR ADVENTURE LEADER 04/10/2025 2:17 PM OUTDOOR ADVENTURE LEADER us Deborah Cadena DROP HAMMER SETTER UP, SUPERVISOR CASE LOADING MICROBIOLOGY - GENERA L ORDERABLES Final Result [facility] [address] [place] [address] * RSV,SARS-COV-2,INFLUENZA A&B BY PCR (04/10/2025 2:12 PM OUTDOOR ADVENTURE LEADER) Pathologist [facility] FLU A Negative Negative, Error 04/10/2025 3:08 PM OUTDOOR ADVENTURE LEADER [email or web address] FLU B Negative Negative 04/10/2025 3:08 PM OUTDOOR ADVENTURE LEADER [email or web address] RESP SYNC VIRUS Negative Negative 3:08 PM OUTDOOR ADVENTURE LEADER [facility] SARSCOV2 NOT DETECTED (Reference Range for this test is Not Detected) 04/10/2025 3:08 PM OUTDOOR ADVENTURE LEADER [facility] Comment:This test was perfor med by a Reverse Asp Developer PCR Method. Nasal NASOPHARYNGEAL STRUCTURE / Unknown Non-Phlebotomy Collection / Unknown 04/10/2025 2:12 PM OUTDOOR ADVENTURE LEADER 04/10/2025 2:17 PM OUTDOOR ADVENTURE LEADER us Deborah Cadena DROP HAMMER SETTER UP, SUPERVISOR CASE LOADING MICROBIOLOGY - GENERA L ORDERABLES Final Result [facility] [address] [place] [address] from Last 3 Months Care Teams Instructor Decorating Relationship Specialty Start Date End Date Teto Draper MD [address] [place] [address] PCP - General Pediatrics 03/27/16
--- OUTSIDE RECORDS SUMMARY | 2025-04-10 18:37 | XMS_ITS | Encounter Summary ---
Author Organization [facility] Care Team Providers Care Epidemiology Investigator Name Role Phone Teto Draper MD Primary Care Provider Encounter Details Date Type Department Care Team (Latest Contact Info) Description 04/10/2025 Travel Social History Tobacco Use Types Packs/Day Years [...] on file documented as of this encounter Functional Status * Question Answer Date of Assessment Author Pain Description constant 04/10/2025 2:09 PM SOCIAL SCIENCES CHAIR Patsy Carpio RN * Mccarthy Fall Risk Question Answer Date of Assessment Author History of Falling, Immediat e or Within 3 Months 0 04/10/2025 2:09 PM SOCIAL SCIENCES CHAIR Patsy Bynum RN Secondary Diagnosis 0 04/10/2025 2:09 PM CS T Patsy Bynum supervisor fish bait processing Aid 0 04/10/2025 2:09 PM SOCIAL SCIENCES CHAIR Patsy Castro RN Intravenous Therapy/Heparin Lock 0 04/10/20 2:09 PM SOCIAL SCIENCES CHAIR Patsy Bynum RN Gait/Transferring 0 04/10/2025 2:09 PM SOCIAL SCIENCES CHAIR Patsy Bynum RN Mental Status 0 04/10/2025 2:09 PM SOCIAL SCIENCES CHAIR Patsy Mckeon RN Mccarthy Fall Risk Score 0 04/10/2025 2:09 PM SOCIAL SCIENCES CHAIR Patsy Bynum, NAVI * Question Answer Date of Assessment Author SpO2 98 04/10/2025 2:08 PM SOCIAL SCIENCES CHAIR Sampl es, Luz Maria Josette, Wheelage Clerk O2 Device None (Room air) 04/10/2025 2:08 PM SOCIAL SCIENCES CHAIR Sa mples, Luz Maria Josette, Wheelage Clerk * Safety Factors Answer Date of Assessment Author bed in low position;call light in reach 04/10/20 2:09 PM SOCIAL SCIENCES CHAIR Patsy Bynum RN * Question Answer Date of Assessment Author BP 127/75 04/10/2025 2:08 PM SOCIAL SCIENCES CHAIR Sampl es, Luz Maria Josette, Wheelage Clerk Temp 99.6 04/10/2025 2:08 PM SOCIAL SCIENCES CHAIR Sampl es, Luz Maria Josette, Wheelage Clerk Pulse 80 04/10/2025 2:08 PM SOCIAL SCIENCES CHAIR Sampl es, Luz Maria Josette, Wheelage Clerk Resp 14 04/10/2025 2:08 PM SOCIAL SCIENCES CHAIR Sampl es, Luz Maria Josette, Wheelage Clerk documented as of this encounter Mental Status * Question Answer Entry Date Author Pain Description constant 04/10/2025 2:09 PM SOCIAL SCIENCES CHAIR Patsy Carpio RN * Question Answer Entry Date Author SpO2 98 04/10/2025 2:08 PM SOCIAL SCIENCES CHAIR Sampl es, Luz Maria Josette, Wheelage Clerk O2 Device None (Room air) 04/10/2025 2:08 PM SOCIAL SCIENCES CHAIR Sa mples, Luz Maria Josette, Wheelage Clerk * Safety Factors Answer Entry Date Author bed in low position;call light in reach 04/10/20 2:09 PM SOCIAL SCIENCES CHAIR Patsy Bynum RN * Question Answer Entry Date Author BP 127/75 04/10/2025 2:08 PM SOCIAL SCIENCES CHAIR Sampl es, Luz Maria Josette, Wheelage Clerk Temp 99.6 04/10/2025 2:08 PM SOCIAL SCIENCES CHAIR Sampl es, Luz Maria Josette, Wheelage Clerk Pulse 80 04/10/2025 2:08 PM SOCIAL SCIENCES CHAIR Sampl es, Luz Maria Josette, Wheelage Clerk documented in this encounter Plan of Treatment Not on file documented as of this encounter Visit Diagnoses Not on filedocumented in this encounter Additional Health Concerns Infection Onset Date Last Indicated Resolved Time Respiratory Rule-Out 04/10/2025 04/10/2025 025 3:08 PM SOCIAL SCIENCES CHAIR documented as of this encounter Care Teams Epidemiology Investigator Relationship Specialty Start Date End Date Teto Draper MD [address] [place] [id number] PCP - General Pediatrics 03/27/16 documented as of this encounter
--- NOTE | 2025-04-10 18:40 | ED_ITS ---
HPI - URI/Sore Throat General Chief Complaint: Upper Respiratory Infection Stated Complaint: Throat Pain Time Seen by Provider: 04/10/25 18:21 Source: patient Mode of arrival: ambulatory Limitations: no limitations History of Present Illness HPI Narrative: 24 years old white male complaining of sore throat, nasal and postnasal discharge started 10 days ago. His girlfriend had similar symptoms 2 days prior to that and resolved in 2 days. Patient has been seen at least 4 times by different medical providers. Finish a course of Augmentin without any improvement, had a prescription of Z-Torres 2 days ago and took the 1st dose today. Patient went to another 2 emergency room today but because of the long waiting decided to leave and come to us.. He denies any fever or chills or nausea or vomiting or coughing. Related Data Allergies Allergy/AdvReac Type Severity Reaction Status Date / Time No Known Allergies Allergy Verified 04/10/25 18:34 Review of Systems Review of Systems: All systems reviewed & are unremarkable except as noted in HPI and below PMFSH Past Medical History Medical History No active medical problems Surgical History Surgical History H/O hand surgery Family History Family History Mother No significant family history Social History Social History Tobacco type: e-cigarettes/vaping Substance use: current Substance use type: marijuana Other substance usage details: daily Gender identity (if verbalized by the patient): Male Exam Narrative: General appearance: Well-developed, well-nourished, nasal, raspy voice Skin: Normal color Head: Normocephalic, nontraumatic Eyes: Clear conjunctiva ENT: Oropharyngeal erythema, ears normal, nose normal Neck: Supple, nontender Chest and respiratory: Airway patent, no respiratory distress, no accessory muscle use Heart: Regular rate/rhythm Musculoskeletal: Normal range of motion, nontender back Neurologic: Alert and oriented ?3, DRUM TENDER is normal as tested, no gross motor deficit Course Vital Signs Vital signs: Vital Signs Temperature 36.7 C 04/10/25 18:09 Pulse Rate 80 04/10/25 18:09 Respiratory Rate 18 04/10/25 18:09 Blood Pressure 114/86 04/10/25 18:09 Pulse Oximetry 98 04/10/25 18:09 Oxygen Delivery Room Air 04/10/25 18:09 Temperature 36.7 C 04/10/25 18:09 Pulse Rate 80 04/10/25 18:09 Respiratory Rate 18 04/10/25 18:09 Blood Pressure 114/86 04/10/25 18:09 Pulse Oximetry 98 04/10/25 18:09 Oxygen Delivery Room Air 04/10/25 18:09 MDM MDM Narrative Medical decision making narrative: Patient tested negative for COVID flu and RSV. Patient tested negative for strep throat Patient tested negative for mono. Patient has been on Augmentin without any improvement, started on Z-Torres today. Upper respiratory viral infection is my concern. Discharged on Afrin nasal spray and Sudafed. The pt was discharged to home.the pt,s condition upon discharge was fair,education was provided to the pt in reference to the final imp ression,discharge study results,treatment,prognosis and need for follow up . Differential Diagnosis Differential Diagnosis: Strep throat, mono, upper respiratory viral infection Lab Data Labs: Lab Results 04/10/25 Range/Units 19:03 Monoscreen Negative (Negative) Influenza A (RT-PCR) Negative (Negative) Influenza B (RT-PCR) Negative (Negative) RSV (RT-PCR) Negative (Negative) SARS-CoV-2 RNA (RT-PCR) Negative (Negative) Group A Strep (PCR) Not detected (Negative) Discharge Plan Discharge Clinical Impression: Upper respiratory infection Patient Disposition: Home Condition: Stable Instructions: Upper Respiratory Infection (ED) Additional Instructions: Return if symptoms are worsening , call your family physician for appointment, take Tylenol, ibuprofen as as needed for aches and pain, continue home medications. Rest Hydration Saltwater gargles, lozenges or honey Use a cool mist vaporizer, saline nasal spray Patient Language: Afghan Prescriptions: New pseudoephedrine HCl [Sudafed 12 Hour] 120 mg tablet extended release 120 mg PO Q12H Qty: 14 0RF Afrin (oxymetazoline) 0.05 % mist 2 spray intranasal Q12H PRN (Reason: nasal congestion) 3 Days Qty: 15 0RF No Action azithromycin [Zithromax Z-Torres] 250 mg tablet See Rx Instructions .ROUTE .COMPLEX Qty: 6 0RF Rx Instructions: For 250 mg dose pack: take 500 mg today (day 1), then 250 mg for 4 days (days 2-5) Follow-up/Referrals: Eliseo Carl MD [Physician, Ear, Nose, Throat] - 04/14/25 PHYSICIAN,SCIENCE CENTER DISPLAY BUILDER [Primary Care Provider, Internal Medicine] Stand Alone Forms: Work/School Release IP
[2025-04-10 19:17] LABS: Positive Monotest Control Positive (Positive)
[2025-04-10 19:18] LABS: Negative Monotest Control Negative (Negative)
[2025-04-10 19:44] LABS: Influenza A QL RT-PCR Negative (Negative); Influenza B QL RT-PCR Negative (Negative); RSV RNA, RT-PCR Negative (Negative); SARS-CoV-2 RNA PCR Negative (Negative); Strep Group A RT-PCR NOT DETECTED (Negative)
[2025-04-10 20:06] VITALS: BP 128/81; PULSE 66; RESP 18; TEMP 36.7; O2SAT 100
== END 2025-04-10 20:06 | disposition home or self-care (01) ==
PROVIDERS: Emergency Provider Emergency Medicine; Referring Provider Internal Medicine
DX: J06.9 Acute upper respiratory infection, unspecified (principal); F17.290 Nicotine dependence, other tobacco product, uncomplicated; Z20.822 Contact with and (suspected) exposure to COVID-19
CPT/HCPCS: 36415; 86308; 87637; 87651; 99283